=== PATIENT | male | born 1985 ===

== ENCOUNTER 2018-01-28 13:52 | Emergency (ER) | payer SELFPAY ==
[2018-01-28] MEDS ORDERED: Ondansetron PF 4 MG/2 ML Vial ONE (14:06)
[2018-01-28] MEDS ORDERED: Morphine 4 MG/ML VIAL ONE (14:06)
[2018-01-28 14:20] LABS: Mean Corpuscular HGB CONC 32.4 g/dL (32.0-36.0); Mean Corpuscular Hemoglobin 30.8 pg (27.0-31.0); Mean Corpuscular Volume 95.1 fL (78.0-98.0); Mean Platelet Volume 7.6 fL (7.4-10.4); Platelet Count 376 thou/uL (130-400); RBC Distribution Width 11.7 % (11.5-14.5); Red Blood Cell (RBC) Count 5.51 mill/uL (4.70-6.10); White Blood Cell (WBC) Count 10.3 thou/uL (4.8-10.8)
--- NOTE | 2018-01-28 14:27 | RAD ---
LEFT ANKLE THREE VIEWS: History: Fall. Left ankle pain. FINDINGS/IMPRESSION: The ankle mortise is maintained. There is a comminuted fracture involving the calcaneus. POS: C
--- NOTE | 2018-01-28 14:27 | RAD ---
LEFT HEEL TWO VIEWS: History: Fall. Injury. Left heel pain. FINDINGS/IMPRESSION: There is a comminuted fracture involving the left calcaneus. POS: C
--- NOTE | 2018-01-28 14:28 | RAD ---
LEFT FOOT THREE VIEWS: History: Fall. Left foot pain. Heel pain. FINDINGS/IMPRESSION: There is a comminuted fracture involving the calcaneus. POS: C
[2018-01-28 14:32] LABS: ALT (SGPT) 123 U/L (8-55); AST (SGOT) 83 U/L (5-34); Albumin 4.4 g/dL (3.5-5.0); Alcohol 266 mg/dL (Less than 10); Alkaline Phosphatase 77 U/L (40-150); Anion Gap 12 mmol/L (10-20); BUN (Urea Nitrogen) 5 mg/dL (8.9-20.6); Bilirubin, Total 0.5 mg/dL (0.2-1.2); Calc. Creatinine Clearance 0 mL/min (70-130); Carbon Dioxide 24 mmol/L (22-29); Chloride 106 mmol/L (98-107); Estimated GFR-MDRD Greater than 90; Globulin 4.3 g/dL (2.4-3.5); Glucose 102 mg/dL (70-105); Potassium 4.2 mmol/L (3.5-5.1); Protein, Total 8.7 g/dL (6.0-8.3); Sodium 138 mmol/L (136-145)
[2018-01-28 14:34] LABS: Eosinophils 3 % (0-10); Lymphocytes 43 % (21-51); MDiff Complete? YES; Monocytes 8 % (0-10); Neutrophil 39 % (42-75); PLT Morphology Comment Appears Adequate; RBC Morphology Normal; Reactive Lymphocytes 6 % (0-10)
[2018-01-28] MEDS ORDERED: Ketorolac Tromethamine 30 MG/ML VIAL ONE (15:40)
[2018-01-28] MEDS ORDERED: HYDROcodone/Acetaminophen 10/325 mg Tablet ONE (15:40)
--- NOTE | 2018-01-28 18:03 | CON-2 ---
DATE OF CONSULTATION: 01/28/2018 We were asked by ER and Trauma to see patient. The patient fell approximately half-way up at 20 foot ladder when just took him over, he ended up landing on his left lower extremity and sustained a calcaneal fracture. He has no numbness and tingling to the foot just a significant amount of pain. When I initially saw patient, we headed off to do another case. Once I came back to the ER, patient has already been splinted and was in much better pain control at this time. He sustained no other injuries from his fall which is quite steffany. He did not lose consciousness at his head or have any other injuries as discussed. PAST MEDICAL HISTORY: Healthy. He did have an injury to his left eye. PAST SURGICAL HISTORY: None. MEDICATIONS: None. ALLERGIES: No known drug allergies. SOCIAL HISTORY: He is fairly new to [place], works in construction, is otherwise healthy. Does use nicotine, a little under a pack a day. Does use alcohol. Denies any illicit drug use. FAMILY HISTORY: Noncontributory. REVIEW OF SYSTEMS: He is a healthy individual. He has vision deficits in the left eye. Left ankle pain, otherwise he is a healthy individual. Rest of review of systems is negative. LABORATORY AND X-RAY FINDINGS: CBC normal. Chemistries: BUN is a little bit low. AST is 83, ALT 123. Plasma alcohol 266. X-rays of left calcaneus fracture, risk factor is negative. PHYSICAL EXAMINATION: GENERAL: Well-nourished, well-developed male, alert, in moderate distress, but much better after the splint was applied. Speech clear, fluent, oriented x3. HEENT: Normal exam. Face symmetric, tongue midline. He does have left visual deficits. NECK: Supple, trachea midline. EXTREMITIES: Upper extremities, equal size, shape, symmetry, normal bulk and tone. Lower extremities, left lower extremity now is casted in a good alignment , he is able to wiggle his toes and has good sensations to the digits. Prior to splinting, DP, PT pulses were intact. ASSESSMENT: Left calcaneal fracture. PLAN: I spoke with the patient. He is okay to go home. We will get him on crutches he has used those in the past, still fairly comfortable with that. We will have PT in the ER work with them, give him some crutches, need to see him back in about 7 days. I have told him to keep his foot elevated and iced to bring the swelling down. So may be in 7-10 days, we can get his calcaneus fixed , get him on forward for repair. Patient is happy with the plan. His questions have been answered. I have instructed him also to keep the splint clean and dry as much as possible. ER is going to take care of his pain control. We should see him back in our clinic in about 7 days. The patient understands. I have informed him to call or follow up sooner if there are any problems or concerns or questions he may have. MARLY
== END 2018-01-28 15:33 | disposition home or self-care (01) ==
LOC: ERS 13:52
DX: S92.002A Unspecified fracture of left calcaneus, initial encounter for closed fracture (principal); F17.210 Nicotine dependence, cigarettes, uncomplicated; W11.XXXA Fall on and from ladder, initial encounter
CPT/HCPCS: 28400; 80053; 80307; 85025; 96374; 96375; J1885; J2270; J2405